=== PATIENT | female | born 1955 | race Caucasian/White ===

== ENCOUNTER 2025-01-20 06:20 | Outpatient (CLI) | payer MEDICARE, OTHER ==
[2025-01-20] MEDS ORDERED: LIDOcaine 1%/PF 5ML 10 MG/ML VIAL ONE (06:35)
[2025-01-20] MEDS ORDERED: LIDOcaine 1% 30ml preserv. free vial ONE (06:35)
[2025-01-20] MEDS ORDERED: iohexol 300 MG/1 ML 50ml polymer ONE (06:35)
[2025-01-20] MEDS ORDERED: GADOTERATE MEGLUMINE 7.5 MMOL/15 ML VIAL IV ONE (06:35)
--- NOTE | 2025-01-20 08:32 | RADIOLOGY REPORT ---
ANGIO ARTHROGRAM (A) Date: 01/20/2025 07:16 AM Clinical History: pain in right hip Comparison: None Procedure: Verbal and written informed consent were obtained from the patient for the procedure of right hip keenan nt fluoroscopically guided arthrogram, after the procedure, risks, and benefits of the procedure wer e explained to the patient. Risks include bleeding, infection, reaction to injected medications, and damage to surrounding anatomic structures. The patient's questions were answered. The patient's mo recent medical history was reviewed. A time out was performed to verify the patient's name, date of , and correct location of the pro cedure, prior to initiation of the procedure. The patient was placed supine on the fluoroscopic table and the area overlying the Right hip joint w as prepped and draped in the usual sterile fashion. The patient tolerated the procedure well. There were no immediate complications. Home-care instruct ions were reviewed with the patient prior to the patient's discharge from the fluoroscopy suite. The patient verbally affirmed understanding of these instructions. Impression: Technically successful fluoroscopically guided RIGHT JOINT HIP arthrogram. The patient was transport ed to MRI for further imaging at the completion of the procedure.
--- NOTE | 2025-01-20 10:08 | RADIOLOGY REPORT ---
CLINICAL INDICATION: RIGHT HIP PAIN COMPARISON: None TECHNIQUE: Multiplanar, multi-sequence MRI of the right hip was performed without after the u neventful intra-articular administration of a dilute gadolinium solution. The contralateral hip is in cluded on several sequences. Contrast: None INTERPRETATION: Joint space: The joint is appropriately distended with intra-articular contrast. Bones and articular cartilage: There is no fracture, bone marrow edema or avascular necrosis. The al ignment is normal. There is chondral thinning on both sides of the right hip joint without focal malini cular cartilage defect. Tendons muscles and bursae: There is no tendon tear. 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 The muscles are normal in bulk and signal characteristics. There is no ev idence of bursitis. Acetabular labrum: There is a tear of the anterior superior labrum which appears to be chronic. Ther e isr a multilobular cystic structure along the superolateral margin of the labrum which measures 1.8 x 1.4 cm consistent with a paralabral cyst. Other findings: Foci of susceptibility artifact in the pelvis consistent postsurgical changes. IMPRESSION: 1. 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 2. Mild degenerative changes in the right hip. 3. 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
== END 2025-01-20 23:59 | disposition home or self-care (01) ==
LOC: RAD 06:20 → EDSTATUS 07:00 → RAD 23:59
PROVIDERS: ATTEND Family Medicine Sports Medicine
DX: S43.491A Other sprain of right shoulder joint, initial encounter (principal); M25.551 Pain in right hip; X58.XXXA Exposure to other specified factors, initial encounter; Y93.89 Activity, other specified; Y92.89 Other specified places as the place of occurrence of the external cause; Y99.8 Other external cause status
CPT/HCPCS: 27093; 73722; 77002; A9575; J2003; J3490; Q9967